=== PATIENT | female | born 1960 | race Caucasian/White ===

== ENCOUNTER 2020-08-07 10:58 | Emergency (ER) | payer OTHER ==
[2020-08-07 11:08] VITALS: BP 173/91
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
== END 2020-08-07 11:51 | disposition home or self-care (01) ==
LOC: ER 10:58
DX: M54.2 Cervicalgia (principal); V42.5XXA Car driver injured in collision with two- or three-wheeled motor vehicle in traffic accident, initial encounter
CPT/HCPCS: 99283